=== PATIENT | male | born 1960 | race Caucasian/White ===

== ENCOUNTER 2017-02-19 11:05 | Emergency (ER) | payer OTHER ==
[2017-02-19 11:12] VITALS: BP 124/77; PULSE 62; TEMP 98.1; BMI 25.8
[2017-02-19] MEDS ORDERED: BUPIVACAINE HCL/PF 0.5% (5MG/ML) 10 ML VIAL PNB ONE (12:34)
[2017-02-19] MEDS ORDERED: LIDOCAINE HCL 1%, 10 MG/ML (50 mL VIAL) PNB ONE (12:34)
--- NOTE | 2017-02-19 12:49 | PDOC ---
History of Present Illness - General Chief Complaint: Pain Stated Complaint: MOUTH PAIN Time Seen by Provider: 02/19/17 11:50 History Source: Patient Exam Limitations: No Limitations - History of Present Illness Initial Comments: 02/19/17 12:41 This is a 56-year-old male with PMH CABG who presents today 2 days status post root canal. He states he saw his dentist on [facility] on February prescribed amoxilcilin and was told to come back this persist. He contacted the dentist today who is out of the office and does not take emergency visits does not have a covering dentist. Pain is progressed to 10 out of 10 over the past 2 days and is unrelieved with hclz-psr-btyadlr medications and amoxicillin as previously prescribed. It is increased pain over molar #2 and also tooth #28 both of which have temporary crowns in place. PMD: None PMH: CAD PSH: CABG pain: P-Teeth #2 and #28 Qstabbing-shooting Rno radiation P10 out of 10 Tworsening over 2 days Tobaccodenies ETOH socially Illicits-denies Timing/Duration: changing over time Severity: severe Past History - Past Medical History Allergies/Adverse Reactions: Allergies Allergy/AdvReac Type Severity Reaction Status Date / Time No Known Allergies Allergy Unverified 02/19/17 11:12 Home Medications: Ambulatory Orders Aspirin 81 mg PO DAILY 10/22/14 Atorvastatin Calcium 40 mg PO DAILY tablet 10/22/14 Lisinopril 10 mg PO DAILY #7 tablet 10/22/14 Metoprolol Succinate 50 mg PO DAILY 10/22/14 Omeprazole 40 mg PO DAILY capsule 10/22/14 Mineral Oil/Mario Oil/Prop Gly [Balneol Cleansing Lotion] 89 ml TP PRN 07/30/15 Prasterone (Dhea)/Calcium Carb [Dhea 50 mg Tablet] 1 each PO DAILY 08/22/15 Trazodone HCl 100 mg PO HS 08/22/15 Amoxicillin - [Amoxicillin 875mg Tablet -] 875 mg PO BID 02/19/17 Oxycodone HCl/Acetaminophen [Percocet 5-325 mg Tablet] 1 - 2 tab PO Q6H #20 tab MDD 8 02/19/17 Anemia: No Asthma: No Cancer: No Cardiac Disorders: Yes (NE 2008) CVA: No COPD: No CHF: No Dementia: No Diabetes: No GI Disorders: Yes (GASTRITIS) Disorders: Yes (BPH) HTN: Yes Hypercholesterolemia: Yes Seizures: No Thyroid Disease: No - Surgical History Abdominal Surgery: No Appendectomy: No Cardiac Surgery: Yes (CABG 4 VESSEL) Cholecystectomy: No Lung Surgery: No Neurologic Surgery: No Orthopedic Surgery: No - Psycho/Social/Smoking Cessation Hx Suicidal Ideation: No Smoking History: Never smoked Have you smoked in the past 12 months: No If you are a former smoker, when did you quit?: 2008 Information on smoking cessation initiated: No Hx Alcohol Use: No Drug/Substance Use Hx: No Substance Use Type: None Hx Substance Use Treatment: No Review of Systems - Review of Systems Able to Perform ROS?: Yes Is the patient limited Vietnamese proficient: No Constitutional: No: Symptoms Reported HEENTM: Yes: See HPI Respiratory: No: Symptoms reported Cardiac (ROS): No: Symptoms Reported ABD/GI: No: Symptoms Reported : No: Symptoms Reported Musculoskeletal: No: Symptoms Reported Integumentary: No: Symptoms Reported Neurological: No: Symptoms reported *Physical Exam - Vital Signs Last Vital Signs Temp Pulse Resp BP Pulse Ox 98.1 F 62 19 124/77 97 02/19/17 11:10 02/19/17 11:10 02/19/17 11:10 02/19/17 11:10 02/19/17 11:10 - Physical Exam General Appearance: Yes: Appropriately Dressed. No: Apparent Distress HEENT: positive: EOMI, HALEY, Normal ENT Inspection Neck: positive: Trachea midline, Supple. negative: Tender Respiratory/Chest: positive: Chest Tender, Lungs Clear, Normal Breath Sounds. negative: Respiratory Distress Cardiovascular: positive: Regular Rhythm, Regular Rate Gastrointestinal/Abdominal: positive: Normal Bowel Sounds, Soft. negative: Tender Musculoskeletal: positive: Normal Inspection. negative: CVA Tenderness Extremity: positive: Normal Capillary Refill, Normal Inspection Integumentary: positive: Normal Color, Dry, Warm Neurologic: positive: gag writer II-XII NML intact, Fully Oriented, Alert, Normal Mood/ Affect, Normal Response, Motor Strength 5/5 ED Treatment Course - Medications Given in the ED: ED Medications Discontinued Medications Generic Name Dose Route Start Last Admin Trade Name Freq PRN Reason Stop Dose Admin Bupivacaine HCl 1 mg 02/19/17 12:34 02/19/17 12:39 Marcaine 0.5% - PNB 02/19/17 12:35 1 mg ONCE ONE Administration Lidocaine HCl 1 ml 02/19/17 12:34 02/19/17 12:39 Xylocaine 1% PNB 02/19/17 12:35 1 ml ONCE ONE Administration Medical Decision Making - Medical Decision Making 02/19/17 12:50 A: This is a 56-year-old male with PMH CABG who presents today 2 days status post root canal. He states he saw his dentist on [facility] on February prescribed amoxilcilin and was told to come back this persist. He contacted the dentist today who is out of the office and does not take emergency visits does not have a covering dentist. Pain is progressed to 10 out of 10 over the past 2 days and is unrelieved with hamk-ptl-bzeukch medications and amoxicillin as previously prescribed. It is increased pain over molar #2 and also tooth #28 both of which have temporary crowns in place. no swelling in oropharynx. No bleeding, discharge, foul-smelling odor from mouth. P: -Posterior superior aveolar nerve block -ICA block - Rx for Percocet - continue amoxil -see dentist on Wednesday - discharge *DC/Admit/Observation/Transfer Diagnosis at time of Disposition: Pain, dental - Discharge Dispostion Disposition: HOME Condition at time of disposition: Stable Admit: No - Prescriptions Prescriptions: Oxycodone HCl/Acetaminophen [Percocet 5-325 mg Tablet] 1 - 2 tab PO Q6H #20 tab MDD 8 - Patient Instructions Additional Instructions: Percocet 1-2 tablets every 6 hours as needed for pain. Continue taking amoxacillin as previously prescribed. Use Listerine mouthwash to prevent infection. Follow-up with your dentist on Wednesday to fix the problem. Through for any worsening pain, discharge, bleeding, foul smelling odor from the mouth. Thank you very much for choosing us to provide emergent health care needs.
== END 2017-02-19 13:46 | disposition home or self-care (01) ==
LOC: JERFT 11:05
DX: K08.89 Other specified disorders of teeth and supporting structures (principal); I25.2 Old myocardial infarction; I25.810 Atherosclerosis of coronary artery bypass graft(s) without angina pectoris; I10 Essential (primary) hypertension; Z95.1 Presence of aortocoronary bypass graft
CPT/HCPCS: 99281-25

== ENCOUNTER 2020-02-27 04:57 | Day surgery (SDC) | payer OTHER ==
--- OUTSIDE RECORDS SUMMARY | 2020-02-27 05:04 | XMS ---
:1960 Author Organization [facility] Support Name Relationship Address Phone SE, SELF-EMPLOYED Unavailable Unavailable Unavailable SE Unavailable Unavailable Unavailable FABIAN GOMEZ [address] [phone] [place] [address] Re-disclosure Warning The records that you are about to access may contain information from federally- assisted alcohol or drug abuse programs. If such information is present, then the following federally mandated warning applies: This information has been disclosed to you from records protected by federal confidentiality rules (42 CFR part 2). The federal rules prohibit you from making any further disclosure of this information unless further disclosure is expressly permitted by the written consent of the person to whom it pertains or as otherwise permitted by 42 CFR part 2. A general authorization for the release of medical or other information is NOT sufficient for this purpose. The Federal rules restrict any use of the information to criminally investigate or prosecute any alcohol or drug abuse patient.The records that you are about to access may contain highly sensitive health information, the redisclosure of which is protected by Article 27-F of the [facility] Public Health law. If you continue you may haveaccess to information: Regarding HIV / AIDS; Provided by facilities licensed or operated by the [facility] Office of Mental Health; or Provided by the [facility] Office for People With Developmental Disabilities. If such information is present, then the following [facility] mandated warning applies: This information has been disclosed to you from confidential records which are protected by state law. State law prohibits you from making any further disclosure of this information without the specific written consent of the person to whom it pertains, or as otherwise permitted by law. Any unauthorized further disclosure in violation of state law may result in a fine or correction sentence or both. A general authorization for the release of medical or other information is NOT sufficient authorization for further disclosure. Insurance Providers Payer name Policy type Policy ID Covered Covered alliance party's Policy P nakia / Coverage alliance party ID relationship to Barillas Inf ormation type barillas [employer] [id number] SP [id number] [employer] [id number] HEALTH PLAN Results ID Date Data Source [id number] 02/22/2020 04:30:00 PM EDT [facility] Name Value Range Interpretation Description Data Sup porting Code Source(s) Document(s ) SARS [facility] coronavirus 2 RNA This lab was ordered by [facility] and reported by [facility]. Procedure
[2020-02-27 09:35] VITALS: BMI 28.7
[2020-02-27 10:34] VITALS: TEMP 97.5
[2020-02-27 11:44] VITALS: BP 117/69; PULSE 65
--- NOTE | 2020-02-28 18:22 | PATH ---
Surgical Pathology Report Patient Name: MANUEL BALDERAS [facility]. Rec. #: [id number] /Age/Gender: 1960 (Age: 59) / M Account: [id number] Location: U-ENDOSCOPY Taken: 02/27/2020 Received: 02/27/2020 Reported: 02/28/2020 Physicians: Edwin Jay D.O. Specimen(s) Received A: ANTRUM B: ANGULARIS AND BODY Clinical History Functional dyspepsia Postoperative diagnosis: Hiatal hernia, gastritis Final Diagnosis A. STOMACH, ANTRUM, BIOPSY: GASTRIC ANTRAL MUCOSA WITH MILD CHRONIC GASTRITIS. IMMUNOHISTOCHEMICAL STAIN FOR H. PYLORI IS NEGATIVE. B. STOMACH, ANGULARIS AND BODY, BIOPSY: GASTRIC BODY MUCOSA WITH MILD CHRONIC GASTRITIS AND FEW DILATED GLANDS. IMMUNOHISTOCHEMICAL STAIN FOR H. PYLORI IS NEGATIVE. Positive and negative controls (internal if applicable) show appropriate results. Electronically Signed Lisbeth Booth M.D. Gross Description A. Received in formalin, labeled "antrum" are 3 xiao, irregular portions of soft tissue measuring 0.3 and 0.4 cm. in greatest dimension. The specimens are submitted in toto in one cassette. B. Received in formalin, labeled "angularis and body" are 2 xiao, irregular portions of soft tissue measuring 0.4 cm. in greatest dimension. The specimens are submitted in toto in one cassette. MLSZ/02/27/2020 sanml/02/27/2020
== END 2020-02-27 11:00 | disposition home or self-care (01) ==
LOC: JASU-ENDO 04:57
PROVIDERS: ATTEND Internal Medicine Gastroenterology
PROC: 0DB68ZX Excision of Stomach, Via Natural or Artificial Opening Endoscopic, Diagnostic (ICD-10-PCS; principal; 2020-02-27 10:00)
DX: K29.50 Unspecified chronic gastritis without bleeding (principal); K44.9 Diaphragmatic hernia without obstruction or gangrene; R10.13 Epigastric pain
CPT/HCPCS: 88305-TC; 88342-TC